=== PATIENT | male | born 1940 | race Caucasian/White ===

== ENCOUNTER 2017-11-16 05:34 | Inpatient (IN) | payer MEDICARE ==
[~2017-11-16] VITALS: Ht 180.3 cm; Wt 88.0 kg
[2017-11-16] MEDS ORDERED: LACTATED RINGERS 1,000 ML IV SCH (06:14)
[2017-11-16] MEDS ORDERED: ENAL20TA PO (06:18)
[2017-11-16] MEDS ORDERED: ATOR40TA78 PO (06:18)
[2017-11-16] MEDS ORDERED: AMLO5TAB2 PO (06:18)
[2017-11-16] MEDS ORDERED: PANT20TA3 PO (06:18)
[2017-11-16] MEDS ORDERED: SERT50TA5 PO (06:18)
[2017-11-16] MEDS ORDERED: ASPI-496 PO (06:18)
[2017-11-16] MEDS ORDERED: LEVO137T3 PO (06:18)
[2017-11-16 06:46] VITALS: BP 136/76
[2017-11-16] MEDS ORDERED: BUPIVACAINE/PF 0.25% ONE (06:57)
[2017-11-16] MEDS ORDERED: LIDOCAINE/PF 0.5% ,50ML ONE (06:57)
[2017-11-16] MEDS ORDERED: THROMBIN 5,000 UNIT VIAL TP ONE ×2 (06:57→07:26)
[2017-11-16] MEDS ORDERED: EPINEPHRINE 1 MG/ML, 1ML ONE (06:58)
[2017-11-16] MEDS ORDERED: VANCOMYCIN 1,000 MG ONE (06:58)
[2017-11-16] MEDS ORDERED: TAMSULOSIN 0.4 MG CAP.ER.24H PO ONE (07:00)
[2017-11-16] MEDS ORDERED: GABAPENTIN 300 MG CAPSULE PO ONE (07:00)
[2017-11-16] MEDS ORDERED: METOCLOPRAMIDE 10MG TABLET PO ONE (07:00)
[2017-11-16] MEDS ORDERED: OxyconTIN ER 10 MG TAB.ER PO ONE (07:00)
[2017-11-16] MEDS ORDERED: ACETAMINOPHEN 500 MG TABLET PO ONE (07:00)
[2017-11-16] MEDS ORDERED: ONDANSETRON ODT 8 MG PO ONE (07:00)
[2017-11-16] MEDS ORDERED: FAMOTIDINE 20 MG TABLET PO ONE (07:00)
[2017-11-16] MEDS ORDERED: KETAMINE 10 MG/ML, 20ML ONE (07:07)
[2017-11-16] MEDS ORDERED: FENTANYL PF 250 MCG/5ML ONE (07:07)
[2017-11-16] MEDS ORDERED: GLYCOPYRROLATE 0.2MG/1ML, 5ML ONE (07:33)
[2017-11-16] MEDS ORDERED: PROPOFOL 10 MG/ML, 20ML ONE (07:33)
[2017-11-16] MEDS ORDERED: NEOSTIGMINE 1 MG/ML, 10ML ONE (07:33)
[2017-11-16] MEDS ORDERED: CEFAZOLIN 1,000 MG ONE (07:33)
[2017-11-16] MEDS ORDERED: ROCURONIUM 10 MG/ML,10ML ONE (07:33)
[2017-11-16] MEDS ORDERED: MORPHINE SULFATE 4 MG/ML, 1ML IVPush PRN (11:30)
[2017-11-16] MEDS ORDERED: PROMETHAZINE 25 MG/ML, 1ML IV PRN (11:30)
[2017-11-16] MEDS ORDERED: FENTANYL PF 100 MCG/2ML IV PRN (11:30)
[2017-11-16] MEDS ORDERED: EPHEDRINE 50 MG/ML, 1ML IM PRN (11:30)
[2017-11-16] MEDS ORDERED: OXYcodone 5 MG/5 ML ORAL.SOL UDC PO PRN (11:30)
[2017-11-16] MEDS ORDERED: ALBUTEROL SULFATE 2.5 MG/3 ML NPPB PRN (11:30)
[2017-11-16] MEDS ORDERED: DIAZEPAM 5 MG/ML, 2ML IVPush PRN (11:30)
[2017-11-16] MEDS ORDERED: METHOCARBAMOL 1,000 MG in DEXTROSE 5% 100 ML IV ONE (12:00)
[2017-11-16] MEDS ORDERED: DEXAMETHASONE 4 MG/ML, 1ML ONE (12:48)
[2017-11-16] MEDS ORDERED: DEXAMETHASONE 4 MG/ML, 1ML IVPush ONE (13:00)
[2017-11-16 13:10] VITALS: BP 114/68
[2017-11-16 13:14] VITALS: BP 114/68
[2017-11-16] MEDS ORDERED: PROMETHAZINE 25 MG/ML, 1ML IM PRN (13:30)
[2017-11-16] MEDS ORDERED: ONDANSETRON 2MG/ML, 2ML IV PRN (13:30)
[2017-11-16] MEDS ORDERED: HYDROcodone/APAP 10/325 MG TABLET PO PRN (13:30)
[2017-11-16] MEDS ORDERED: ONDANSETRON ODT 4 MG PO PRN (13:30)
[2017-11-16] MEDS ORDERED: BISACODYL 10 MG SUPP PR PRN (13:30)
[2017-11-16] MEDS ORDERED: MORPHINE SULFATE 4 MG/ML, 1ML IV PRN (13:30)
[2017-11-16] MEDS ORDERED: MAGNESIUM HYDROXIDE 8%, 30ML UDC PO PRN (13:30)
[2017-11-16] MEDS: D5%-0.9% NACL+KCL 20MEQ 1,000 ML IV SCH (13:54)
[2017-11-16] MEDS: DEXAMETHASONE 4 MG/ML, 1ML IVPush SCH (18:39)
[2017-11-16] MEDS: CEFAZOLIN PMX 1GM/50ML 50 ML IVPB SCH (18:39)
[2017-11-16 19:18] VITALS: BP 135/75
[2017-11-16] MEDS: ATORVASTATIN 40 MG TABLET PO SCH (21:09)
[2017-11-16] MEDS: METHOCARBAMOL 750 MG in DEXTROSE 5% 100 ML IV SCH (22:29)
[2017-11-17 00:03] VITALS: BP 114/52
[2017-11-17] MEDS: D5%-0.9% NACL+KCL 20MEQ 1,000 ML IV SCH ×2 (00:04→12:46)
[2017-11-17] MEDS: DEXAMETHASONE 4 MG/ML, 1ML IVPush SCH (01:28)
[2017-11-17] MEDS: CEFAZOLIN PMX 1GM/50ML 50 ML IVPB SCH (03:21)
[2017-11-17 04:41] VITALS: BP 124/68
[2017-11-17 05:25] LABS: BASOPHILS % (AUTO) 0 % (0-1); EOSINOPHILS % (AUTO) 0 % (1-7); LYMPHOCYTES # (AUTO) 0.36 x10^3/uL (1-3.4); LYMPHOCYTES % (AUTO) 3 % (22-44); MD NO; MEAN CORPUSCULAR HEMOGLOBIN 33.7 pg (27.5-34.5); MEAN CORPUSCULAR HGB CONC 33.3 g/dL (33.2-36.2); MONOCYTES # (AUTO) 0.43 x10^3/uL (0.2-0.8); MONOCYTES % (AUTO) 4 % (2-9); NEUTROPHILS # (AUTO) 10.78 x10^3/uL (1.8-6.8); NEUTROPHILS % (AUTO) 93 % (42-75); PLATELET COUNT 182 x10^3/uL (130-400); RED BLOOD COUNT 3.93 x10^6/uL (4.38-5.82); RED CELL DISTRIBUTION WIDTH 13.4 % (9.4-14.8)
[2017-11-17 05:40] LABS: ANION GAP 8 mmol/L (5-15); CALCIUM 8.6 mg/dL (8.5-10.1); CHLORIDE 109 mmol/L (98-107)
[2017-11-17] MEDS: METHOCARBAMOL 750 MG in DEXTROSE 5% 100 ML IV SCH ×2 (06:26→16:05)
[2017-11-17] MEDS: LEVOTHYROXINE 137 MCG TABLET PO SCH (06:26)
[2017-11-17] MEDS ORDERED: PANTOPRAZOLE 20MG TABLET PO SCH (07:30)
[2017-11-17 07:50] VITALS: BP 133/76
[2017-11-17] MEDS: AMLODIPINE 5 MG TABLET PO SCH (08:57)
[2017-11-17] MEDS: SENNA/DOCUSATE TABLET PO SCH (08:57)
[2017-11-17] MEDS ORDERED: AMLODIPINE 5 MG TABLET PO SCH (09:00)
[2017-11-17] MEDS ORDERED: ENALAPRIL 20MG TABLET PO SCH ×2 (09:00)
[2017-11-17] MEDS: POLYETHYLENE GLYCOL 17 GM PACKET PO SCH (09:00)
[2017-11-17] MEDS: SIMETHICONE 80 MG CHEW TAB PO SCH ×2 (09:51→17:24)
[2017-11-17] MEDS ORDERED: CALCIUM CARBONATE 500 MG TAB.CHEW PO PRN (12:30)
[2017-11-17] MEDS ORDERED: METOCLOPRAMIDE 10MG TABLET PO PRN (12:30)
[2017-11-17] MEDS ORDERED: MAALOX/HYOSCYAMINE/LIDOCAINE 45 ML BTL PO ONE (12:30)
[2017-11-17 12:56] VITALS: BP 147/71
[2017-11-17 18:49] VITALS: BP 117/70
[2017-11-17] MEDS ORDERED: METOCLOPRAMIDE 5 MG/ML, 2ML IVPush PRN (19:30)
[2017-11-17] MEDS: ATORVASTATIN 40 MG TABLET PO SCH (21:38)
[2017-11-18] MEDS: METHOCARBAMOL 750 MG in DEXTROSE 5% 100 ML IV SCH ×3 (00:04→16:57)
[2017-11-18 00:55] VITALS: BP 120/77
[2017-11-18] MEDS: SIMETHICONE 80 MG CHEW TAB PO SCH ×4 (01:00→23:02)
[2017-11-18 05:23] LABS: BASOPHILS # (AUTO) 0.02 x10^3/uL (0-0.1); BASOPHILS % (AUTO) 0 % (0-1); EOSINOPHILS % (AUTO) 0 % (1-7); LYMPHOCYTES # (AUTO) 0.99 x10^3/uL (1-3.4); LYMPHOCYTES % (AUTO) 8 % (22-44); MD NO; MEAN CORPUSCULAR HEMOGLOBIN 34.4 pg (27.5-34.5); MEAN CORPUSCULAR HGB CONC 33.9 g/dL (33.2-36.2); MEAN CORPUSCULAR VOLUME 101.3 fL (81-97); MEAN PLATELET VOLUME 8.8 fL (7.4-10.4); MONOCYTES # (AUTO) 0.94 x10^3/uL (0.2-0.8); MONOCYTES % (AUTO) 8 % (2-9); NEUTROPHILS # (AUTO) 10.58 x10^3/uL (1.8-6.8); NEUTROPHILS % (AUTO) 84 % (42-75); PLATELET COUNT 186 x10^3/uL (130-400); RED BLOOD COUNT 3.98 x10^6/uL (4.38-5.82); RED CELL DISTRIBUTION WIDTH 13.5 % (9.4-14.8)
[2017-11-18 05:34] LABS: ANION GAP 5 mmol/L (5-15); CALCIUM 7.9 mg/dL (8.5-10.1); CHLORIDE 105 mmol/L (98-107)
[2017-11-18 05:35] LABS: CREATININE 0.91 mg/dL (0.7-1.3)
[2017-11-18] MEDS: LEVOTHYROXINE 137 MCG TABLET PO SCH (06:00)
[2017-11-18] MEDS: D5%-0.9% NACL+KCL 20MEQ 1,000 ML IV SCH (06:12)
[2017-11-18] MEDS ORDERED: PANTOPRAZOLE GRAN. PKT 40 MG PO SCH (07:30)
[2017-11-18 07:40] VITALS: BP 109/70
[2017-11-18] MEDS ORDERED: ENALAPRILAT 1.25 MG/ML, 2ML IV PRN (08:30)
[2017-11-18] MEDS: PANTOPRAZOLE 40 MG IV IVPush SCH (08:39)
[2017-11-18] MEDS: POLYETHYLENE GLYCOL 17 GM PACKET PO SCH (08:45)
[2017-11-18] MEDS: AMLODIPINE 5 MG TABLET PO SCH (08:46)
[2017-11-18] MEDS: SENNA/DOCUSATE TABLET PO SCH (08:46)
[2017-11-18 10:10] LABS: ANION GAP 6 mmol/L (5-15); CALCIUM 8.3 mg/dL (8.5-10.1); CHLORIDE 106 mmol/L (98-107); CREATININE 0.93 mg/dL (0.7-1.3)
[2017-11-18] MEDS: METOCLOPRAMIDE 5 MG/ML, 2ML IVPush SCH ×3 (11:01→23:00)
[2017-11-18] MEDS ORDERED: D5%-0.9% NACL+KCL 20MEQ 1,000 ML IV SCH (13:30)
[2017-11-18 14:07] VITALS: BP 144/82
[2017-11-18] MEDS ORDERED: PVN PER PHARMACY IV SCH (17:00)
[2017-11-18] MEDS ORDERED: DEXTROSE 10% 500 ML IV PRN (17:00)
[2017-11-18] MEDS ORDERED: [UNRECOGNIZED DRUG - OTHER] IV SCH (17:00)
[2017-11-18] MEDS ORDERED: D5%-0.9% NACL 1,000 ML IV SCH (17:00)
[2017-11-18] MEDS ORDERED: AMINO ACID 10% IV SCH ×2 (17:00→17:30)
[2017-11-18] MEDS ORDERED: FILTER, DISP 1.2 MICRON FOR TPN/PVN IV PRN (17:00)
[2017-11-18] MEDS ORDERED: DEXTROSE 70% IV SCH ×2 (17:00→17:30)
[2017-11-18] MEDS ORDERED: DEXTROSE 50%, 50ML SYRINGE IVPush PRN (17:00)
[2017-11-18] MEDS ORDERED: FAT EMULSIONS IV SCH (17:00)
[2017-11-18] MEDS ORDERED: [UNRECOGNIZED DRUG - OTHER] IV SCH (17:30)
[2017-11-18] MEDS ORDERED: STERILE WATER IV SCH (17:30)
[2017-11-18 18:21] LABS: GASTRIC OCCULT BLD POSITIVE (NEGATIVE)
[2017-11-18 19:57] VITALS: BP 142/67
[2017-11-18] MEDS: ATORVASTATIN 40 MG TABLET PO SCH (21:00)
[2017-11-18] MEDS: METHOCARBAMOL 750 MG TABLET PO SCH (21:00)
[2017-11-18] MEDS: INSULIN REGULAR MEDIUM DOSE Q6H X 48HRS SQ-INSULIN SCH (22:42)
[2017-11-19] MEDS: INSULIN REGULAR MEDIUM DOSE Q6H X 48HRS SQ-INSULIN SCH ×2 (03:00→08:59)
[2017-11-19] MEDS: METHOCARBAMOL 750 MG TABLET PO SCH ×3 (03:30→20:53)
[2017-11-19] MEDS: LEVOTHYROXINE 137 MCG TABLET PO SCH (04:33)
[2017-11-19] MEDS: METOCLOPRAMIDE 5 MG/ML, 2ML IVPush SCH ×3 (04:56→18:04)
[2017-11-19 06:11] LABS: ALBUMIN 2.8 g/dL (3.4-5.0); ANION GAP 7 mmol/L (5-15); CHLORIDE 107 mmol/L (98-107)
[2017-11-19 06:24] LABS: ALANINE AMINOTRANSFERASE 21 U/L (12-78); ALKALINE PHOSPHATASE 51 U/L (45-117); BILIRUBIN,TOTAL 1.3 mg/dL (0.2-1.0); CALCIUM 8.1 mg/dL (8.5-10.1); CREATININE 0.73 mg/dL (0.7-1.3); PREALBUMIN 22.4 mg/dL (20.0-40.0); TOTAL PROTEIN 5.4 g/dL (6.4-8.2); TRIGLYCERIDES 80 mg/dL (50-200)
[2017-11-19 07:04] VITALS: BP 118/66
[2017-11-19] MEDS: PANTOPRAZOLE 40 MG IV IVPush SCH (08:55)
[2017-11-19] MEDS: SENNA/DOCUSATE TABLET PO SCH (08:56)
[2017-11-19] MEDS: SIMETHICONE 80 MG CHEW TAB PO SCH ×3 (08:56→20:53)
[2017-11-19] MEDS: AMLODIPINE 5 MG TABLET PO SCH (08:56)
[2017-11-19] MEDS: POLYETHYLENE GLYCOL 17 GM PACKET PO SCH (08:56)
[2017-11-19] MEDS ORDERED: BUTALB/APAP/CAFFEINE 50MG/325MG/40MG PO PRN (09:00)
[2017-11-19 14:02] VITALS: BP 111/74
[2017-11-19] MEDS: HYDROcodone/APAP 5/325 TABLET PO PRN ×2 (15:39→18:04)
[2017-11-19 20:00] VITALS: BP 138/71
[2017-11-19] MEDS: ATORVASTATIN 40 MG TABLET PO SCH (20:53)
[2017-11-20] MEDS: METOCLOPRAMIDE 5 MG/ML, 2ML IVPush SCH ×3 (00:12→12:37)
[2017-11-20 02:00] VITALS: BP_SYST 123; BP_SYST 125; BP_DIAS 71; BP_DIAS 77
[2017-11-20] MEDS: HYDROcodone/APAP 5/325 TABLET PO PRN ×3 (04:03→12:38)
[2017-11-20] MEDS: SIMETHICONE 80 MG CHEW TAB PO SCH (05:32)
[2017-11-20] MEDS: METHOCARBAMOL 750 MG TABLET PO SCH (05:32)
[2017-11-20] MEDS: LEVOTHYROXINE 137 MCG TABLET PO SCH (05:32)
[2017-11-20 08:00] VITALS: BP 135/78
[2017-11-20] MEDS: AMLODIPINE 5 MG TABLET PO SCH (08:49)
[2017-11-20] MEDS: PANTOPRAZOLE 40 MG IV IVPush SCH (08:49)
[2017-11-20] MEDS: POLYETHYLENE GLYCOL 17 GM PACKET PO SCH (08:51)
[2017-11-20] MEDS: SENNA/DOCUSATE TABLET PO SCH (08:51)
[2017-11-20 10:24] LABS: BASOPHILS # (AUTO) 0.01 x10^3/uL (0-0.1); BASOPHILS % (AUTO) 0 % (0-1); EOSINOPHILS # (AUTO) 0.34 x10^3/uL (0-0.4); EOSINOPHILS % (AUTO) 6 % (1-7); LYMPHOCYTES # (AUTO) 0.46 x10^3/uL (1-3.4); LYMPHOCYTES % (AUTO) 8 % (22-44); MD NO; MEAN CORPUSCULAR HEMOGLOBIN 34.2 pg (27.5-34.5); MEAN CORPUSCULAR HGB CONC 34.2 g/dL (33.2-36.2); MEAN CORPUSCULAR VOLUME 99.9 fL (81-97); MEAN PLATELET VOLUME 8.8 fL (7.4-10.4); MONOCYTES # (AUTO) 0.43 x10^3/uL (0.2-0.8); MONOCYTES % (AUTO) 7 % (2-9); NEUTROPHILS # (AUTO) 4.71 x10^3/uL (1.8-6.8); NEUTROPHILS % (AUTO) 79 % (42-75); PLATELET COUNT 143 x10^3/uL (130-400); RED BLOOD COUNT 3.46 x10^6/uL (4.38-5.82); RED CELL DISTRIBUTION WIDTH 12.7 % (9.4-14.8)
[2017-11-20 11:16] VITALS: BP 134/75
[2017-11-20] MEDS ORDERED: ENALAPRIL 20MG TABLET ONE (11:33)
[2017-11-20] MEDS ORDERED: HYDR-3240 PO (13:10)
[2017-11-20] MEDS ORDERED: METO10TA82 PO (13:10)
[2017-11-21] MEDS ORDERED: ENALAPRIL 20MG TABLET PO SCH (09:00)
[2017-11-21] MEDS ORDERED: INSULIN REGULAR MEDIUM DOSE QDAY SQ-INSULIN SCH (09:00)
== END 2017-11-20 14:07 | disposition home health service (06) | DRG 459 ==
LOC: ORIP 05:34 → EDSTATUS 07:30 → 4NOR 13:04 → DCLOUNGE 11-20 13:48
PROVIDERS: ADMIT Orthopaedic Surgery Orthopaedic Surgery of the Spine; ATTEND Orthopaedic Surgery Orthopaedic Surgery of the Spine
PROC: 0SP004Z Removal of Internal Fixation Device from Lumbar Vertebral Joint, Open Approach (ICD-10-PCS; 2017-11-16)
PROC: 00UT0JZ Supplement Spinal Meninges with Synthetic Substitute, Open Approach (ICD-10-PCS; 2017-11-16)
PROC: 0SG00K1 Fusion of Lumbar Vertebral Joint with Nonautologous Tissue Substitute, Posterior Approach, Posterior Column, Open Approach (ICD-10-PCS; principal; 2017-11-16 07:30)
DX: M48.061 Spinal stenosis, lumbar region without neurogenic claudication (principal); E43 Unspecified severe protein-calorie malnutrition; K56.7 Ileus, unspecified; I10 Essential (primary) hypertension; K21.9 Gastro-esophageal reflux disease without esophagitis; E78.5 Hyperlipidemia, unspecified; Z91.041 Radiographic dye allergy status
CPT/HCPCS: 36415; 72100; 74018; 80048; 80053; 82271; 82962; 83735; 84100; 84134; 84478; 85025; C1713; J0171; J0610; J0690; J1100; J1644; J1815; J2001; J2270; J2550; J2704; J2710; J3010; J3370; J3490; J7042; Q0162; C1762; C1781; C9113; J1720; J2765; J2800; J3420; J3475; J3480; J7120